=== PATIENT | male | born 2005 | race Caucasian/White ===

== ENCOUNTER 2024-03-20 14:22 | Emergency (ER) | payer OTHER, SELFPAY ==
[2024-03-20 15:27] VITALS: BP 135/73; PULSE 85; RESP 16; TEMP 36.6; O2SAT 100
--- NOTE | 2024-03-20 15:43 | ED.WOUNDLAC ---
HPI - Wound/Laceration General Chief Complaint: Wound/Laceration Stated Complaint: SCALP LACERATION Time Seen by Provider: 03/20/24 15:40 Source: patient Mode of arrival: ambulatory Limitations: no limitations History of Present Illness HPI narrative: Pantera is a 19-year-old male patient presenting to the clinic today with complaints of a right scalp laceration. He reports he cut his head on some sheet metal. He denies any loss of consciousness or neck pain. Bleeding is controlled. Tetanus is [id number] Related Data Home Medications ?Medication ?Instructions ?Recorded ?Confirmed ?Last Taken ?Type No Home Medications 03/20/24 03/20/24 Unknown History Allergies Allergy/AdvReac Type Severity Reaction Status Date / Time No Known Allergies Allergy Verified 03/20/24 15:19 Review of Systems Review of Systems: Pertinent positives per HPI. Patient denies any fever, chills, rash, headache, visual changes, dizziness, cough, runny nose, sore throat, shortness of breath, chest pain, palpitations, nausea, vomiting, diarrhea, constipation, abdominal pain, or any urinary issues. PMFSH Comments At the time of my signature, I reviewed and agree with the nursing past medical, surgical, social, and family history. There is no relevant family history pertinent to the patient complaint. Exam Narrative: General: Well-developed, well nourished, in no apparent distress Head: Normocephalic, atraumatic. Cardio: Regular rate and rhythm, s1 and s2 normal, no murmur appreciated. Resp: Clear to auscultation bilaterally, no rhonchi, rales, wheezing or rubs. Integumentary: [place], warm, and dry, approximately 2 cm scalp laceration with mild gaping to the right scalp. Bleeding is controlled Course Course Emergency Course: Portions of this record may have been created with voice recognition software. Level of Care: Express Care Visit Vital Signs Vital signs: Vital Signs Temperature 36.6 C 03/20/24 15: Pulse Rate 85 03/20/24 15: Respiratory Rate 16 03/20/24 15: Blood Pressure 135/73 03/20/24 15:27 Pulse Oximetry 100 03/20/24 15:27 Temperature 36.6 C 03/20/24 15:27 Pulse Rate 85 03/20/24 15:27 Respiratory Rate 16 03/20/24 15:27 Blood Pressure 135/73 03/20/24 15:27 Pulse Oximetry 100 03/20/24 15:27 Vital signs reviewed MDM - Wound/Laceration MDM Narrative Medical decision making narrative: At the time of visit patient is resting comfortably on the exam table. Patient appears to be nontoxic. Procedures: Laceration repair was performed. Five julissa were placed into the scalp wound bringing the wound edges well approximate. Plan: Patient has a 2 cm laceration to the top of his scalp. This was closed using 5 julissa. Patient tolerated well. Supportive measures were discussed with the patient and they voiced understanding discharge instructions and agrees to treatment plan. Return precautions reviewed Differential Diagnosis Differential diagnosis: Likely laceration, abscess, abrasion and avulsion of skin Discharge Plan Discharge Clinical Impression: Laceration of scalp Qualifiers: Encounter type: initial encounter Qualified Code(s): S01.01XA - Laceration without foreign body of scalp, initial encounter Patient Disposition: Home, Self-Care Condition: Stable Instructions: Antibiotic Form, Head Laceration (ED) Additional Instructions: Leave bandage on for 24 hours then may remove and apply band aide covering as needed. Keep wound clean and dry If head laceration- julissa out in 5 days. Watch for signs and symptoms of infection- redness, streaking, swelling, purulent discharge, or increase in pain. Follow up with your PCP for suture removal or return to the Express care. Patient Language: Montenegrin Prescriptions: No Action No Home Medications Follow-up/Referrals: Samuel,Jose De Jesus [Other] Time of Disposition: 15:44 Quality NIHSS Nursing Documentation ED NIHSS nursing documentation: reviewed/agree
== END 2024-03-20 15:46 | disposition home or self-care (01) ==
PROVIDERS: Emergency Provider Nurse Practitioner Family
DX: S01.01XA Laceration without foreign body of scalp, initial encounter (principal); W26.8XXA Contact with other sharp object(s), not elsewhere classified, initial encounter
CPT/HCPCS: 12001; 99212; G0463